=== PATIENT | male | born 1970 | race African-American/Black ===

== ENCOUNTER 2017-06-30 12:30 | Emergency (ER) | payer MEDICAID, OTHER ==
[2017-06-30 12:38] VITALS: RESP 16; TEMP 98.1
--- NOTE | 2017-06-30 15:03 | EDPHY ---
General - History Smoking Status: Current every day smoker Time Seen by Provider: 06/30/17 14:34 Narrative: CHIEF COMPLAINT: Multiple complaints HISTORY OF PRESENT ILLNESS: Patient complains of "I think it's my kidneys." He reports foam urine, bilateral flank pain and burning. The symptoms have been present on off for the past few weeks. He says "I looked it up online and it's the kidneys." Associates it with foaming urine, increased urinary frequency. He also has complaints of epigastric pain, occasional dark liquidy stools, generalized abdominal pain, left shoulder tingling and pain. He has been seen by primary care physician at a clinic with no formal diagnoses. He has not been evaluated by GI physician. He has had no imaging performed. He does take Naprosyn occasionally with some improvement. No other associated complaints or modifying factors. REVIEW OF SYSTEMS: Ten systems reviewed and are negative unless otherwise noted in the HPI PCP: Erasmo SPECIALISTS: None PAST MEDICAL HISTORY: Osteoarthritis, pancreatitis PAST SURGICAL HISTORY: Right upper extremity surgery SOCIAL HISTORY: Daily smoker. Denies any alcohol or drug use. 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 Uvula midline. Airway widely patent Neck: Normal inspection, supple, non-tender Respiratory: Lungs are clear to auscultation. No wheezing rhonchi or crackles Cardiovascular: Regular rate and rhythm. No murmur Gastrointestinal: Abdomen is soft and nontender. no tympany or rigidity. no guarding. mild bilateral CVA tenderness. benign exam Rectal exam: Refused by patient Back: non-tender, no bony abnormalities Neurological: A&O, nonfocal, normal gait Skin: Warm and dry, no rash. No petechiae or purpura Extremities: Nontender, no pedal edema Psychiatric: Mood and affect normal DIFFERENTIAL DIAGNOSES: Including but not limited to nephrolithiasis, acute kidney injury, pyelonephritis, UTI, dehydration, pancreatitis, peptic ulcer disease, cervical radiculopathy, upper GI bleed MDM: 2:35 p.m. Multiple complaints including urinary complaints, flank pain, epigastric pain abdominal pain, tingling of the shoulder and left side of the neck, dark stools intermittently. His abdominal exam is benign. His neuro exam is well within normal limits. Vital signs are within normal limits. He does have some flank tenderness. Laboratory studies are currently being drawn. Resting comfortably in no acute distress. I have recommended rectal exam to the patient to test for occult blood but he has declined. 3:20 p.m. Urinalysis unremarkable. Remainder of laboratory studies are pending. 4:00 p.m. Laboratory studies are all within normal limits. CT scan pending. He is resting comfortably in no acute distress 4:50 p.m. Contacted by radiologist Dr. Fischer. No significant abnormalities on the CT scan. There are some osteophytes of both SI joints. I re-evaluated the patient. We discussed the possibility of osteoarthritis versus autoimmune versus other etiology. We also discussed the dark stools. I strongly recommend that he follow up with primary care physician for occult testing and further workup for this. We also discussed possible follow up with GI. We discussed short course of pain medication and follow up with primary care physician for further testing. At this time he has no neurologic symptoms. He has no chest pain and vital signs are within normal limits. I do feel he is stable for discharge home. SUPERVISION: Patient was independently examined, but I discussed the case with my secondary supervising physician Dr. Jordan ([facility]) Medical Decision Making: I did not see this patient while he was in the emergency department. However his care was discussed with the PA while the patient was in the department. I agree with treatment plan and management (Jason Jordan) - Objective Vital Signs: Initial Vital Signs Temperature (C) 98.1 F 06/30/17 12:34 Heart Rate 68 06/30/17 12:34 Respiratory Rate 16 06/30/17 12:34 Blood Pressure 112/66 06/30/17 12:34 O2 Sat (%) 98 06/30/17 12:34 O2 Delivery Mode Room Air Allergies/Adverse Reactions: No Known Allergies Allergy (Unverified 06/30/17 12:33) Home Medications: Medication Instructions Recorded Acetaminophen/Codeine 300/30Mg 1 each PO Q6 PRN #11 tab 06/30/17 [Tylenol #3 (*)] Cyclobenzaprine [Flexeril 10 MG 10 mg PO TID PRN #11 tab 06/30/17 (*)] Naproxen [Naprosyn] 500 mg PO 06/30/17 Laboratory Results: Laboratory Results 06/30/17 15:15 06/30/17 15:15 Departure - Departure Disposition: Home, Routine, Self-Care Clinical Impression: SI joint arthritis Low back pain Qualifiers: Chronicity: acute Back pain laterality: bilateral Sciatica presence: without sciatica Qualified Code(s): M54.5 - Low back pain Condition: Good Instructions: Sacroiliitis (ED), Lower Back Exercises (ED) Additional Instructions: 1. Medications as prescribed as needed 2. Follow up with PCP within next 48 hours 3. ED return precautions as discussed Referrals: [facility],. [Clinic] - As per Instructions Stand Alone Forms: Work Excuse Prescriptions: Acetaminophen/Codeine 300/30Mg [Tylenol #3 (*)] 1 each PO Q6 PRN #11 tab PRN Reason: Pain, Mild Cyclobenzaprine [Flexeril 10 MG (*)] 10 mg PO TID PRN #11 tab PRN Reason: Spasms
[2017-06-30 15:34] LABS: PLATELET COUNT 270 10^3/uL (150-400)
[2017-06-30 15:39] LABS: INR 0.94 (0.83-1.16); PROTIME(PATIENT) 12.8 SEC (12.0-15.0)
[2017-06-30] MEDS ORDERED: IOPAMIDOL (ISOVUE-300) 100 ML BTL ONE (15:51)
[2017-06-30 18:11] VITALS: BP 115/71; PULSE 69; O2SAT 97
== END 2017-06-30 17:30 | disposition home or self-care (01) ==
DX: M53.3 Sacrococcygeal disorders, not elsewhere classified (principal)
CPT/HCPCS: Q9967

== ENCOUNTER 2017-07-24 13:17 | Emergency (ER) | payer MEDICAID ==
[2017-07-24] MEDS ORDERED: NS 1,000 ML IV ONE (14:03)
[2017-07-24 14:19] LABS: PLATELET COUNT 268 10^3/uL (150-400)
[2017-07-24] MEDS ORDERED: HYOSCYAMINE SULFATE 0.125 MG TAB PO ONE (14:23)
[2017-07-24] MEDS ORDERED: KETOROLAC 30 MG/1 ML SDV IVP ONE (14:23)
[2017-07-24] MEDS ORDERED: FAMOTIDINE 20 MG/NACL 50 ML IV ONE (14:23)
[2017-07-24] MEDS ORDERED: MAG HYDROX/AL HYDROX/SIMETH 30 ML UDCUP PO ONE (14:23)
[2017-07-24] MEDS ORDERED: LIDOCAINE 2% VISCOUS 15 ML UDCUP PO ONE (14:23)
--- NOTE | 2017-07-24 14:26 | EDPHY ---
H & P Time Seen by Provider: 07/24/17 14:11 HPI/ROS: CHIEF COMPLAINT: Abdominal pain HISTORY OF PRESENT ILLNESS: Patient is a 47-year-old male presents emergency department with abdominal pain. He states that he has had epigastric pain starting last night. It does not radiate. It is moderate to severe. It is fairly constant. The patient has nausea with numerous episodes of nonbloody emesis. He has also had diarrhea. He denies fevers or chills. The patient states he has had these pains previously. He has also been previously diagnosed with pancreatitis. He had similar pain while he was drinking heavily. He was treated by the intermediate nurse was some medication to help the symptoms. Patient also complains of a mild headache. He feels is secondary to his abdominal pain. REVIEW OF SYSTEMS: My complete review of systems is negative except as mentioned in the HPI. Past Medical/Surgical History: Includes pancreatitis, previous alcohol abuse, right arm laceration which precipitated a cardiac arrest Social history: Patient smokes. He denies alcohol or drug use. Smoking Status: Current every day smoker Physical Exam: 36.9, 82/50, 92, 16, 95% on room air. When I was in the room his blood pressure was 98/59. GENERAL: Well-appearing, in no acute distress, alert. HEENT: Eyes normal to inspection, normal pharynx, no signs of dehydration. NECK: No thyromegaly, no lymphadenopathy, supple. RESPIRATORY: Clear to auscultation bilaterally, no rales, rhonchi or wheezing. CVS: Regular rate and rhythm, no rubs, murmurs, or gallops. ABDOMEN: Soft, mild epigastric tenderness to palpation with no rebound or guarding, nondistended, no organomegaly. BACK: Normal to inspection, no CVA tenderness. SKIN: Normal color, no rash, warm, dry. No pallor. EXTREMITIES: No pedal edema, no calf tenderness, no Homans sign or cords, no joint swelling. NEURO/PSYCH: Alert and oriented x3, normal mood and affect, normal motor sensory exam. No obvious cranial nerve deficit. Constitutional: Initial Vital Signs Temperature (C) 36.9 C 07/24/17 13:35 Heart Rate 92 07/24/17 13:35 Respiratory Rate 16 07/24/17 13:35 Blood Pressure 82/50 L 07/24/17 13:35 O2 Sat (%) 95 07/24/17 13:35 O2 Delivery Mode Room Air Allergies/Adverse Reactions: No Known Allergies Allergy (Unverified 06/30/17 12:33) Home Medications: Medication Instructions Recorded Acetaminophen/Codeine 300/30Mg 1 each PO Q6 PRN #11 tab 06/30/17 [Tylenol #3 (*)] Cyclobenzaprine [Flexeril 10 MG 10 mg PO TID PRN #11 tab 06/30/17 (*)] Naproxen [Naprosyn] 500 mg PO 06/30/17 Famotidine [Pepcid 20 MG (*)] 20 mg PO BID #10 tab 07/24/17 Medical Decision Making - Diagnostics Imaging Results: Imaging Impressions Abdomen Ultrasound 07/24/17 14:26 Impression: Normal right upper quadrant ultrasound. Findings discussed with Mayra Diamond M.D. at 16:02 hour, 07/24/2017. ED Course/Re-evaluation: In the emergency department I discussed possible etiologies with the patient. I answered all his questions. An IV was placed. Laboratory studies were obtained. I ordered right upper quadrant ultrasound. Patient was given a GI cocktail, Pepcid 20 mg IV and Toradol 30 mg IV for his pain. I reviewed the patient's laboratory studies. [place] [address]. His chemistry was notable for an elevated creatinine of 2.0. His LFT showed elevated total bili at 1.7. His conjugated bili was 1.4. AST and ALT were normal. Alk phos was normal. 15 20: Awaiting ultrasound results. On recheck the patient states he was feeling well. His pain is resolved. He felt a GI cocktail resolved his symptoms. Sinus rhythm at 72. Normal axis. Normal intervals. There is diffuse ST elevation V1 through V6. I compared this with previous EKG from May 2005. At that time he had probable early repolarization pattern it looks similar. I do not think this is acute pericarditis. The patient's pain is not positional. His epigastric discomfort is reproducible on exam. Ultrasound: Negative. Please refer the dictated report by Aaliyah. I discussed the results with the patient. I answered all her questions. He was given a prescription of Pepcid prior to discharge. He will follow up with his primary care physician as well as the clock mechanic. He is given warnings prior to leaving. Differential Diagnosis: My differential includes but is not limited to pancreatitis, cholecystitis, cholangitis, esophagitis, GERD, peptic ulcer disease, small-bowel obstruction, perforation, ACS, acute MS, pericarditis, myocarditis - Data Points Laboratory Results: Laboratory Results 07/24/17 14:10 07/24/17 14:10 07/24/17 07/24/17 07/24/17 14:10 14:10 14:10 WBC 13.81 10^3/uL H 10^3/uL (3.80-9.50) RBC 4.68 10^6/uL 10^6/uL (4.40-6.38) Hgb 13.1 g/dL L g/dL (13.7-17.5) Hct 38.8 % L % (40.0-51.0) MCV 82.9 fL fL (81.5-99.8) MCH 28.0 pg pg (27.9-34.1) MCHC 33.8 g/dL g/dL (32.4-36.7) RDW 13.1 % % (11.5-15.2) Plt Count 268 10^3/uL 10^3/uL (150-400) MPV 9.0 fL fL (8.7-11.7) Neut % (Auto) 70.8 % % (39.3-74.2) Lymph % (Auto) 21.8 % % (15.0-45.0) [place] % (Auto) 6.9 % % (4.5-13.0) Eos % (Auto) 0.2 % L % (0.6-7.6) Baso % (Auto) 0.1 % L % (0.3-1.7) Nucleat RBC Rel Count 0.0 % % (0.0-0.2) Absolute Neuts (auto) 9.77 10^3/uL H 10^3/uL (1.70-6.50) Absolute Lymphs (auto) 3.01 10^3/uL H 10^3/uL (1.00-3.00) Absolute Monos (auto) 0.95 10^3/uL H 10^3/uL (0.30-0.80) Absolute Eos (auto) 0.03 10^3/uL 10^3/uL (0.03-0.40) Absolute Basos (auto) 0.02 10^3/uL 10^3/uL (0.02-0.10) Absolute Nucleated RBC 0.00 10^3/uL 10^3/uL (0-0.01) Immature Gran % 0.2 % % (0.0-1.1) Immature Gran # 0.03 10^3/uL 10^3/uL (0.00-0.10) Sodium 139 mEq/L mEq/L (135-145) Potassium 3.9 mEq/L mEq/L (3.5-5.2) Chloride 103 mEq/L mEq/L (97-110) Carbon Dioxide 26 mEq/l mEq/l (22-31) Anion Gap 10 mEq/L mEq/L (8-16) BUN 28 mg/dL H mg/dL (7-23) Creatinine 2.0 mg/dL H mg/dL (0.7-1.3) Estimated GFR 36 Glucose 76 mg/dL mg/dL (70-100) Calcium 9.3 mg/dL mg/dL (8.5-10.4) Total Bilirubin 1.7 mg/dL H mg/dL (0.1-1.4) Conjugated Bilirubin 0.3 mg/dL mg/dL (0.0-0.5) Unconjugated Bilirubin 1.4 mg/dL H mg/dL (0.0-1.1) AST 87 IU/L H IU/L (17-59) ALT 68 IU/L IU/L (21-72) Alkaline Phosphatase 40 IU/L IU/L (38-126) Total Protein 6.9 g/dL g/dL (6.3-8.2) Albumin 4.1 g/dL g/dL (3.5-5.0) Lipase 124 IU/L IU/L (23-300) Urine Color PALE YELLOW Urine Appearance CLEAR Urine pH 6.0 (5.0-7.5) Ur Specific [place] 1.001 L (1.002-1.030) Urine Protein NEGATIVE (NEGATIVE) Urine Ketones NEGATIVE (NEGATIVE) Urine Blood NEGATIVE (NEGATIVE) Urine Nitrate NEGATIVE (NEGATIVE) Urine Bilirubin NEGATIVE (NEGATIVE) Urine Urobilinogen NEGATIVE EU EU (0.2-1.0) Ur Leukocyte Esterase NEGATIVE (NEGATIVE) Urine Glucose NEGATIVE (NEGATIVE) Medications Given: Discontinued Medications Al Hydroxide/Mg Hydroxide (Maalox Susp) 30 ml PO ONCE ONE Stop: 07/24/17 14:24 Last Admin: 07/24/17 14:32 Dose: 30 ml Hyoscyamine Sulfate (Levsin, Hyomax-Sl) 0.25 mg PO ONCE ONE Stop: 07/24/17 14:24 Last Admin: 07/24/17 14:32 Dose: 0.25 mg Sodium Chloride (Ns) 1,000 mls @ 0 mls/hr IV ONCE ONE; Wide Open PRN Reason: Protocol Stop: 07/24/17 14:04 Last Admin: 07/24/17 14:06 Dose: 1,000 mls Famotidine/Sodium Chloride (Pepcid 20 Mg (Premix)) 50 mls @ 200 mls/hr IV EDNOW ONE Stop: 07/24/17 14:37 Last Admin: 07/24/17 14:32 Dose: 50 mls Ketorolac Tromethamine (Toradol) 30 mg IVP EDNOW ONE Stop: 07/24/17 14:24 Last Admin: 07/24/17 14:32 Dose: 30 mg Lidocaine (Lidocaine 2% Viscous) 15 ml PO ONCE ONE Stop: 07/24/17 14:24 Last Admin: 07/24/17 14:32 Dose: 15 ml Departure - Departure Disposition: Home, Routine, Self-Care Clinical Impression: Abdominal pain Qualifiers: Abdominal location: epigastric Qualified Code(s): R10.13 - Epigastric pain Condition: Good Instructions: Acute Abdominal Pain (ED) Additional Instructions: Your ultrasound was negative. Your laboratory studies were unremarkable. Return to the emergency department if you have increasing pain, vomiting or any other concerns. Referrals: NONE *PRIMARY CARE P,. [Primary Care Provider] - As per Instructions Prescriptions: Famotidine [Pepcid 20 MG (*)] 20 mg PO BID #10 tab
--- NOTE | 2017-07-24 14:34 | CPEKG ---
Heart Rate: 72 RR Interval: 833 P-R Interval: 152 QRSD Interval: 74 QT Interval: 360 QTC Interval: 394 P [place]: 70 QRS [place]: 67 T Wave [place]: 43 EKG Severity - ABNORMAL ECG - EKG Impression: SINUS RHYTHM EKG Impression: ST ELEVATION SUGGESTS PERICARDITIS Electronically Signed By: Mayar Diamond 24-Jul-2017 21:08:41
[2017-07-24 16:14] VITALS: O2SAT 97
[2017-07-24 16:57] VITALS: BP 110/70; PULSE 71; RESP 23; TEMP 97.9
== END 2017-07-24 16:57 | disposition home or self-care (01) ==
DX: R10.13 Epigastric pain (principal); F17.200 Nicotine dependence, unspecified, uncomplicated; E86.9 Volume depletion, unspecified
CPT/HCPCS: 96365; J1885